=== PATIENT | male | born 1990 | race Caucasian/White ===

== ENCOUNTER → 2021-02-24 | Outpatient (CLI) | payer BC ==
--- NOTE | 2021-02-24 08:24 | MR ---
MRI CERVICAL SPINE: CLINICAL HISTORY: Neck pain and soreness into right arm for 4 to 5 years. Cervicalgia. TECHNIQUE: Multiplanar, multisequence imaging of the cervical spine is performed without IV contrast. COMPARISON: Outside cervical spine x-ray January 31, 2021. FINDINGS: Coronal images redemonstrate the levoconvex scoliosis or scoliotic curvature centered upper thoracic spine. Sagittal images of the cervical spine show the craniocervical junction to appear wit hin normal limits. The cervical and upper thoracic spinal cord is normal in course, caliber, and sig nal. Vertebral alignment is satisfactory on sagittal images. The vertebral body and intravertebral disk heights are normal. The bone marrow signal intensity is within normal limits. Axial images at C2-C3 level showed broad based right paracentral disc protrusion minimally effacing t he anterolateral thecal sac. Patent bilateral neural foramina. Axial images at C3-C4 level shows broad-based right paracentral disc protrusion minimally effaces the anterior thecal sac, patent bilateral neural foramina. Axial images at C4-C5 level showed broad based posterior disc protrusion mildly facing anterior theca l sac with uncovertebral facet degenerative changes bilaterally, there is mild bilateral neural miguel inal narrowing noted. Axial images at C5-C6 level show more focal broad-based left paracentral disc protrusion effacing ant erolateral thecal sac and causing asymmetric mild to borderline moderate left-sided neural foraminal narrowing on image 27. Axial images at C6-C7 level shows broad-based posterior disc protrusion mildly effacing the anterior thecal sac and causing [id number] bilateral neural foraminal narrowing. Axial images at C7-T1 level appear within normal limits. IMPRESSION: Levoconvex scoliotic curvature with multilevel degenerative changes as detailed above.
== END | disposition home or self-care (01) ==
LOC: RADMRIMAIN 07:42
PROVIDERS: ATTEND Orthopaedic Surgery
DX: M50.223 Other cervical disc displacement at C6-C7 level (principal); M99.71 Connective tissue and disc stenosis of intervertebral foramina of cervical region; M41.82 Other forms of scoliosis, cervical region
CPT/HCPCS: 72141